=== PATIENT | female | born 1995 | race Hispanic/Latino ===

== ENCOUNTER 2019-08-27 02:36 | Inpatient (IN) | payer MEDICAID ==
[~2019-08-27] VITALS: Ht 157.5 cm; Wt 85.7 kg
[2019-08-27] VITALS (7 sets, daily range): BP systolic 98–122; BP diastolic 51–78
[2019-08-27] MEDS ORDERED: CLINDAMYCIN 600 MG/D5% WATER 50 ML IV ONE (02:55)
[2019-08-27] MEDS ORDERED: OXYTOCIN-LR 20 UNITS/1000 ML 1,000 ML IV ONE ×2 (02:56→04:53)
[2019-08-27] MEDS ORDERED: LACTATED RINGERS 1000ML 1,000 ML IV PRN (03:31)
[2019-08-27] MEDS ORDERED: BENZOCAINE/LANOLIN/ALOE VERA 60 ML AEROSOL TP PRN (03:45)
[2019-08-27] MEDS ORDERED: ACETAMINOPHEN-CODEINE 300/30MG TAB PO PRN (03:45)
[2019-08-27] MEDS ORDERED: LANOLIN 30GM OINTMENT TP PRN (03:45)
[2019-08-27] MEDS ORDERED: ACETAMINOPHEN 325 MG TAB PO PRN (03:45)
[2019-08-27] MEDS ORDERED: WITCH HAZEL 1 PAD TP PRN (03:45)
[2019-08-27] MEDS ORDERED: OXYTOCIN-LR 20 UNITS/1000 ML 1,000 ML IV SCH ×2 (03:45)
[2019-08-27] MEDS ORDERED: IBUPROFEN 600 MG TABLET ONE (04:03)
[2019-08-27 04:15] LABS: HEMATOCRIT 29.7 % (36-48); MEAN CORPUSCULAR HEMOGLOBIN 28.3 pg (27.0-33.0); MEAN CORPUSCULAR HGB CONC 33.8 g/dL (32.0-36.0); MEAN CORPUSCULAR VOLUME 83.7 fL (79-99); PLATELET COUNT (AUTO) 338 K/uL (130-400); RED BLOOD CELL COUNT(AUTO) 3.55 MIL/uL (4.00-5.50); RED CELL DISTRIBUTION WIDTH 14.4 % (11.0-15.5); WHITE BLOOD COUNT (AUTO) 16.5 K/uL (4.8-10.8)
[2019-08-27 05:14] LABS: APPEARANCE,URINE Turbid (CLEAR); BILIRUBIN,URINE Small (NEGATIVE); COLOR,URINE Red (YELLOW); GLUCOSE, URINE (UA) Negative (NEGATIVE); KETONES,URINE 40 mg/dL (NEGATIVE); LEUKOCYTE ESTERASE ,URINE Moderate (NEGATIVE); NITRATE,URINE Negative (NEGATIVE); OCCULT BLOOD,URINE Large (NEGATIVE); PH,URINE 5.5 (5.0-8.0); PROTEIN,URINE POS 2+ mg/dL (NEGATIVE)
[2019-08-27] MEDS ORDERED: CLINDAMYCIN 600 MG/D5% WATER 50 ML IV PRN (05:30)
[2019-08-27 05:41] LABS: BACTERIA,URINE Few /HPF (None Seen); RBC,URINE >100 /HPF (0-1); SQUAMOUS EPITHELIAL CELL,UR 0-2 /HPF (0-2)
[2019-08-27 06:02] LABS: AMPHET/METH SCREEN,URINE NEGATIVE (NEGATIVE); BARBITURATE SCREEN, URINE NEGATIVE (NEGATIVE); BENZODIAZEPINES SCREEN,URINE NEGATIVE (NEGATIVE); CANNABINOID SCREEN,URINE NEGATIVE (NEGATIVE); COCAINE SCREEN,URINE NEGATIVE (NEGATIVE); OPIATE SCREEN,URINE NEGATIVE (NEGATIVE); PHENCYCLIDINE SCREEN,URINE NEGATIVE (NEGATIVE)
[2019-08-27] MEDS ORDERED: PREN-18 PO (06:32)
[2019-08-27] MEDS: DOCUSATE SODIUM 100 MG CAP PO SCH ×2 (09:00→20:48)
[2019-08-27 12:00] LABS: HEMATOCRIT 28.9 % (36-48); MEAN CORPUSCULAR HEMOGLOBIN 28.4 pg (27.0-33.0); MEAN CORPUSCULAR HGB CONC 33.7 g/dL (32.0-36.0); MEAN CORPUSCULAR VOLUME 84.2 fL (79-99); PLATELET COUNT (AUTO) 324 K/uL (130-400); RED BLOOD CELL COUNT(AUTO) 3.43 MIL/uL (4.00-5.50); RED CELL DISTRIBUTION WIDTH 14.5 % (11.0-15.5)
[2019-08-27] MEDS: IBUPROFEN 600 MG TABLET PO PRN (20:49)
[2019-08-28 03:36] VITALS: BP 107/69
--- NOTE | 2019-08-28 07:40 | NUR ---
FUNDUS IS FIRM, BLEEDING IS SCANT. NO PAIN REPORTED AT THIS TIME. NON PITTING EDEMA NOTED TO BILATERAL EXTREMITIES. CALL LIGHT LEFT IN REACH. ADVISED PATIENT TO CALL WITH ANY NEEDS OR CONCERNS. PT. VOICED UNDERSTANDING.
[2019-08-28 07:59] VITALS: BP 118/63
[2019-08-28 08:12] LABS: HEPATITIS Bs ANTIGEN SCREEN P Negative (Negative)
[2019-08-28] MEDS: IBUPROFEN 600 MG TABLET PO PRN (08:43)
--- NOTE | 2019-08-28 10:45 | NUR ---
SPOKE WITH DR. MARITZA HORAN RESIDENT WITH [facility]. INFORMED ON PT'S STATUS AND THAT DR. JESUS HAS NOT ROUNDED ON PATIENT. DR. HORAN STATES HE WILL BE BY TO ROUND ON PT TODAY.
[2019-08-28 11:33] VITALS: BP 107/81
--- NOTE | 2019-08-28 13:50 | NUR ---
PATIENT STATES SHE IS TIRED. NO NEED FOR PAIN MEDICATION AT THIS TIME. INFORMED THAT QUIET TIME IS FROM [id number] TO TRY TO REST. CALL LIGHT LEFT IN REACH. ADVISED PATIENT TO CALL WITH ANY NEEDS OR CONCERNS.
--- NOTE | 2019-08-28 16:05 | NUR ---
DR.DEL JALLOH ROUNDING ON PATIENT. POC DISCUSSED. QUESTIONS INVITED AND ANSWERED. PATIENT OKAY TO STAY EXTRA DAY.
[2019-08-28 16:11] VITALS: BP 130/75
[2019-08-28 19:38] VITALS: BP 118/66
[2019-08-28] MEDS: DOCUSATE SODIUM 100 MG CAP PO SCH (21:00)
[2019-08-29 00:06] VITALS: BP 108/66
[2019-08-29 03:47] VITALS: BP 105/59
[2019-08-29 07:50] VITALS: BP 114/58
[2019-08-29] MEDS: DOCUSATE SODIUM 100 MG CAP PO SCH (09:00)
--- NOTE | 2019-08-29 11:35 | NUR ---
DISCHARGE INSTRUCTIONS READ AND EXPLAINED TO PATIENT. PRESCRIPTION FOR MORTIN 600MG HANDED TO PATIENT. QUESTIONS INVITED AND ANSWERED. PT VOICED UNDERSTANDING.
--- NOTE | 2019-08-29 14:58 | NUR ---
[facility] SW met with parents and educated on [facility]. Parents agreeable to referral and pt signed consent. Referral faxed to [facility]
--- NOTE | 2019-08-29 17:00 | NUR ---
PATIENT LEFT UNIT VIA WHEELCHAIR WITH BABY IN ARMS. PERSONAL VEHICLE USED FOR TRANSPORTATION ACCOMPANIED BY SIGNIFICANT OTHER. BABY SECURE IN CARSEAT.
== END 2019-08-29 17:00 | disposition home or self-care (01) | DRG 560 ==
LOC: EDH 02:36 → LDH 02:37 → OBSVTOIN 02:37 → WSH 05:37
PROVIDERS: ADMIT Obstetrics & Gynecology; ATTEND Obstetrics & Gynecology
PROC: 10E0XZZ Delivery of Products of Conception, External Approach (ICD-10-PCS; principal; 2019-08-27)
DX: O60.14X0 Preterm labor third trimester with preterm delivery third trimester, not applicable or unspecified (principal); Z37.0 Single live birth; Z28.21 Immunization not carried out because of patient refusal; Z3A.36 36 weeks gestation of pregnancy
CPT/HCPCS: 36415; 80305; 81001; 85027; 86592; 86850; 86900; 86901; 87340; G0378; J2590; J3490

== ENCOUNTER → 2021-03-06 | Outpatient (CLI) | payer MEDICAID, SELFPAY ==
[~2021-03-06] MED LIST: PREN-18 PO
== END | disposition home or self-care (01) ==
LOC: LAB 03-05 12:45
PROVIDERS: ATTEND Internal Medicine Cardiovascular Disease
DX: Z20.822 Contact with and (suspected) exposure to COVID-19 (principal)
CPT/HCPCS: C9803; U0003